=== PATIENT | female | born 1990 | race African-American/Black ===

== ENCOUNTER 2021-06-25 10:40 | Inpatient (IN) | payer MEDICAID, SELFPAY ==
[2021-06-25] MEDS ORDERED: Promethazine HCl 25 MG/ML VIAL IM PRN ×2 (11:29→16:52)
[2021-06-25] MEDS ORDERED: hydrALAZINE 20 MG/ML VIAL SLOW IVP PRN ×3 (11:29→16:52)
[2021-06-25] MEDS ORDERED: Butorphanol Tartrate 1 MG/ML VIAL SLOW IVP PRN (11:29)
[2021-06-25] MEDS ORDERED: Ondansetron PF 4 MG/2 ML Vial IVP PRN ×2 (11:29→16:52)
[2021-06-25] MEDS ORDERED: Acetaminophen 500 MG TAB PO PRN (11:29)
[2021-06-25] MEDS ORDERED: Lactated Ringer's 1,000 ML IV SCH (11:30)
[2021-06-25] MEDS ORDERED: Penicillin G Potassium 5 MILL.UNITS VIAL ONE (11:59)
[2021-06-25] MEDS ORDERED: ceFAZolin 2 GM/Dextrose 50 ML IVPB ONE (11:59)
[2021-06-25 12:01] LABS: #Monocytes 1.1 10x3/uL (0.0-1.1); #Neutrophils 15.1 10x3/uL (1.5-8.4); %Basophils 0.2 % (0.0-2.0); %Eosinophils 0.2 % (0.0-6.0); %Lymphocytes 4.4 % (18.0-47.0); %Monocytes 6.5 % (0.0-10.0); %Neutrophils 85.6 % (40.0-75.0); Hemoglobin 11.9 g/dL (12.0-15.5); Mean Corpuscular HGB CONC 33.1 g/dL (32.0-36.0); Mean Corpuscular Volume 93.5 fl (81.6-98.3); Platelet Count 213 10x3/uL (150-450); Red Blood Cell (RBC) Count 3.84 10x6/uL (3.90-5.03); White Blood Cell (WBC) Count 17.6 10x3/uL (3.5-10.5)
[2021-06-25] MEDS ORDERED: NS w/ Oxytocin 30 units 500 ML ONE ×2 (12:07→12:46)
[2021-06-25] MEDS ORDERED: Lidocaine 1% (PF) 30 ML VIAL ONE (12:08)
[2021-06-25 12:23] LABS: ALT (SGPT) 10 U/L (8-55); AST (SGOT) 21 U/L (5-34); Albumin 3.5 g/dL (3.5-5.0); Alkaline Phosphatase 199 U/L (40-110); Anion Gap 19 mmol/L (10-20); BUN (Urea Nitrogen) 9 mg/dL (7.0-18.7); Bilirubin, Total 1.2 mg/dL (0.2-1.2); Calc. Creatinine Clearance 0 mL/min (70-130); Calcium 9.3 mg/dL (7.8-10.44); Carbon Dioxide 13 mmol/L (22-29); Chloride 110 mmol/L (98-107); Globulin 3.4 g/dL (2.4-3.5); Glucose 80 mg/dL (70-105); Potassium 3.6 mmol/L (3.5-5.1); Protein, Total 6.9 g/dL (6.0-8.3); Sodium 138 mmol/L (136-145)
[2021-06-25] MEDS ORDERED: Misoprostol 200 MCG TAB ONE (12:26)
[2021-06-25] MEDS ORDERED: Carboprost 250 MCG/ML AMP ONE (12:26)
[2021-06-25] MEDS ORDERED: Methylergonovine 0.2 MG/ML VIAL ONE (12:26)
[2021-06-25] MEDS ORDERED: Morphine 4 MG/ML VIAL ONE (12:32)
[2021-06-25 12:40] LABS: Syphilis Antibody Nonreactive (Nonreactive); Syphilis Antibody Index 0.06 S/CO (<1.00 Non-Reactive)
[2021-06-25 12:43] LABS: HIV (1/2) Antibody/Antigen Non-Reactive (NonReactive); HIV 1/2 INDEX 0.08 S/CO (<1.00); Hep B Surf Ag Non-Reactive S/CO (NonReactive)
[2021-06-25 12:53] LABS: Bilirubin Neg (Negative); Blood, Urine 150 (Negative); Clarity Clear (Clear); Glucose, Urine (Dipstick) Normal (Negative); Ketone, Urine 50 mg/dL (Negative); Leukocyte Negative (Negative); Nitrite Negative (Negative); Protein, Urine (Dipstick) 15 mg/dl (Neg-Trace); Specific Gravity, Urine 1.005 (1.002-1.036); Urobilinogen Normal mg/dL (Less than 2)
[2021-06-25 13:01] LABS: Amphetamine Not Detected (NotDetected); Barbiturates Screen Not Detected (NotDetected); Benzodiazepine Screen Not Detected (NotDetected); Cocaine Metabolite Screen Not Detected (NotDetected); Methadone Not Detected (NotDetected); Methamphetamine Not Detected (NotDetected); Opiate Screen Not Detected (NotDetected); Oxycodone Screen Not Detected (NotDetected); Phencyclidine (PCP) Not Detected (NotDetected); THC/Cannabinoid Screen Not Detected (NotDetected); Tricyclic Screen Not Detected (NotDetected)
[2021-06-25 13:16] LABS: Bacteria/HPF Rare-Few HPF (None Seen); Squamous Epithelial 0-3 HPF (0-3); Transitional Epithelial 0-3 HPF (None Seen); WBC/HPF 0-3 HPF (0-3)
[2021-06-25 13:35] LABS: SARS-CoV-2 NAA Rapid Test Not Detected (NotDetected)
[2021-06-25] MEDS ORDERED: diphenhydrAMINE 25 MG CAP PO PRN (16:52)
[2021-06-25] MEDS ORDERED: Lanolin Ointment 7 GM TUBE TOP PRN (16:52)
[2021-06-25] MEDS ORDERED: traMADol HCl 50 MG TAB PO PRN ×2 (16:52)
[2021-06-25] MEDS ORDERED: Boostrix 0.5 ML (Tdap) VIAL IM ONE (16:52)
[2021-06-25] MEDS ORDERED: Bisacodyl 10 MG SUPP PR PRN (16:52)
[2021-06-25] MEDS ORDERED: Preparation H Ointment 28 GM TUBE PR PRN (16:52)
[2021-06-25] MEDS ORDERED: Milk Of Magnesia 30 ML UDCUP PO PRN (16:52)
[2021-06-25] MEDS ORDERED: Benzocaine-Menthol 82.5 ML CAN TOP PRN (16:52)
[2021-06-25] MEDS ORDERED: NS w/ Oxytocin 30 units 500 ML IV SCH (16:52)
[2021-06-25] MEDS ORDERED: Zolpidem Tartrate 5 MG TAB PO PRN (16:52)
[2021-06-25] MEDS ORDERED: Ibuprofen 800 MG TAB PO SCH (17:00)
[2021-06-25 20:45] LABS: Chlamydia by PCR Not Detected (NotDetected); GC by PCR Not Detected (NotDetected)
[2021-06-25] MEDS: Ibuprofen 800 MG TAB PO SCH (22:28)
[2021-06-25] MEDS: Docusate 100 MG CAP PO SCH (22:28)
[2021-06-26] MEDS: Ibuprofen 800 MG TAB PO SCH (06:27)
[2021-06-26 08:51] VITALS: BP 110/56; TEMP 98.2
[2021-06-26] MEDS ORDERED: Prenatal Vitamin 1 TAB PO SCH (09:00)
[2021-06-26] MEDS ORDERED: metroNIDAZOLE 500 MG TAB PO SCH ×2 (09:00)
[2021-06-26] MEDS: Docusate 100 MG CAP PO SCH (09:56)
== END 2021-06-26 11:29 | disposition home or self-care (01) | DRG 806 ==
LOC: CSHLD/OP 10:40 → EEVIPCON 10:40 → CSHERS 10:40 → EDSTATUS 11:11 → CSHLD 12:03 → EEVIPCON 12:03 → CSHPP 17:10
PROVIDERS: ADMIT Obstetrics & Gynecology; ATTEND Obstetrics & Gynecology
PROC: 10D07Z6 Extraction of Products of Conception, Vacuum, Via Natural or Artificial Opening (ICD-10-PCS; principal; 2021-06-25)
PROC: 0KQM0ZZ Repair Perineum Muscle, Open Approach (ICD-10-PCS; 2021-06-25)
PROC: 0UQMXZZ Repair Vulva, External Approach (ICD-10-PCS; 2021-06-25)
DX: O34.211 Maternal care for low transverse scar from previous cesarean delivery (principal); O98.813 Other maternal infectious and parasitic diseases complicating pregnancy, third trimester; Z37.0 Single live birth; O77.0 Labor and delivery complicated by meconium in amniotic fluid; Z20.822 Contact with and (suspected) exposure to COVID-19; O42.02 Full-term premature rupture of membranes, onset of labor within 24 hours of rupture; O76 Abnormality in fetal heart rate and rhythm complicating labor and delivery; O70.1 Second degree perineal laceration during delivery; O71.82 Other specified trauma to perineum and vulva; A59.01 Trichomonal vulvovaginitis; Z3A.37 37 weeks gestation of pregnancy
CPT/HCPCS: 0240U; 36415; 76815; 80053; 80306; 81001; 85025; 86762; 86780; 86850; 86900; 86901; 87340; 87389; 87480; 87491; 87510; 87591; 87660; 87661; 88307; 93005; 93010; 99285; J0690; J2001; J2210; J2270; J2540

== ENCOUNTER 2022-09-24 15:32 | Emergency (ER) | payer OTHER | END 2022-09-24 16:43 | disposition home or self-care (01) | LOC: CSHERS 15:32 | DX: K02.9 Dental caries, unspecified (principal) | CPT/HCPCS: 99282 ==